=== PATIENT | female | born 1995 | race Caucasian/White ===

== ENCOUNTER 2019-12-12 05:19 | Inpatient (IN) ==
--- NOTE | 2019-12-11 13:39 | History and Physical Report ---
DATE OF ADMISSION: 12/12/2019 ADMITTING DIAGNOSES: 1. Term . 2. Previous section. ADMISSION HISTORY: The patient is a 23-year-old 2, para 1 with an EDC of 12 December by 18-week ultrasound who is admitted for an elective repeat section. The patient did not present for care until 18 weeks gestational age. She had a dating ultrasound at that time which dated the . The first was not with our practice. She underwent a primary section for distress with an unfavorable cervix. She had been counseled on the risks and benefits of a repeat section versus a trial of labor and the patient has opted for a repeat section. Laboratory values for this show a blood type of O positive, antibody negative, rubella immune, hepatitis B negative. She had a normal 1-hour Glucola x2. The patient declined all genetic testing and she had a negative third trimester beta strep culture. PAST MEDICAL HISTORY: OB as above. 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 MEDICAL: Depression. SURGICAL: As above. ALLERGIES: MUCINEX. SOCIAL HISTORY: No smoking. FAMILY HISTORY: Noncontributory. REVIEW OF SYSTEMS: As per HPI. ADMISSION PHYSICAL EXAMINATION: GENERAL: Shows a gravid female in no acute distress. VITAL SIGNS: Blood pressure 110/74 and a weight of 210 pounds. HEENT EXAMINATION: Unremarkable. NECK: Supple. LUNGS: Clear. HEART: With a regular rhythm and rate. ABDOMEN: Gravid, vertex, positive heart tones, estimated weight of 7 1/2 pounds. PELVIC: Shows the cervix to be long, thick and closed. EXTREMITIES: Shows no deep calf tenderness. NEUROLOGIC: Grossly intact. IMPRESSION: 23-year-old G2, P1, 39+ weeks gestational age for elective repeat section. PLAN: The risks, benefits, and alternatives to the surgery have been discussed. While the benefits will be delivery of the , the risks are bleeding, infection, inadvertent injury to bowel or bladder, readmission and reoperation. The patient understands this, permit has been signed, and she wishes to proceed.
[~2019-12-12 05:19] MED LIST: PATIENT'S HEIGHT AND/OR WEIGHT NEEDED SCH
[2019-12-12] MEDS ORDERED: SODIUM CHLORIDE 0.9% 250 ML IV PRN (05:24)
[2019-12-12 05:57] LABS: Basophils # (auto) 0.02 K/uL (0-0.2); Basophils % (auto) 0.2 %; Eosinophils # (auto) 0.12 K/uL (0-0.5); Eosinophils % (auto) 1.2 %; Hematocrit (blood only) 29.6 % (37-47); Hemoglobin 9.2 g/dL (12.0-16.0); Immature Granulocytes # (auto) 0.03 K/uL (0.00-0.02); Immature Granulocytes % (auto) 0.3 %; Lymphocytes # (auto) 1.93 K/uL (1.2-3.4); Mean Corpuscular Hemoglobin 22.5 pg (25-34); Mean Corpuscular Volume 72.4 fL (80-100); Mean Platelet Volume 11.1 fL (7.4-10.4); Monocytes # (auto) 0.63 K/uL (0.11-0.59); Monocytes % (auto) 6.2 %; Neutrophils # (auto) 7.45 K/uL (1.4-6.5); Neutrophils % (auto) 73.1 %; Platelet Count 217 K/uL (130-400); RDW Coefficient of Variation 17.1 % (11.5-14.5); Red Blood Count 4.09 M/uL (4.2-5.4); White Blood Count 10.18 K/uL (4.8-10.8)
[2019-12-12] MEDS ORDERED: CITRIC ACID/SODIUM CITRATE 15 ML UDC PO SCH (06:00)
[2019-12-12] MEDS ORDERED: LACTATED RINGER'S 1,000 ML IV SCH ×2 (06:00→09:03)
[2019-12-12] MEDS ORDERED: CEFAZOLIN 3,000 MG in DEXTROSE 5% 50 ML IV SCH (06:00)
[2019-12-12 06:01] LABS: Mean Corpuscular Hgb Conc 31.1 g/dL (32-36)
--- NOTE | 2019-12-12 07:14 | History & Physical Bridge Note ---
Date of Service December 12, 2019 History & Physical Bridge Note I have examined the patient, reviewed the History & Physical and in the interval since the performance of the History & Physical I have noted the following changes of clinical significance: no changes noted
[2019-12-12] MEDS ORDERED: MoRPHine SULFATE PF 1 MG/ML 10 ML AMP/VIAL INT SPINAL ONE (07:25)
[2019-12-12] MEDS ORDERED: NALOXONE HCL 0.4 MG/1 ML VIAL/CARP IV PRN (07:25)
[2019-12-12] MEDS ORDERED: NALBUPHINE HCL INJ 10 MG/ML AMP IV PRN (07:25)
[2019-12-12] MEDS ORDERED: ONDANSETRON INJ 2 MG/ML 2 ML VIAL IV PRN (07:25)
[2019-12-12] MEDS ORDERED: DiphenhydrAMINE HCL 50 MG/ML VIAL IV PRN (07:25)
[2019-12-12] MEDS ORDERED: PROMETHAZINE HCL 6.25 MG in SODIUM CHLORIDE 0.9% 50 ML IV PRN (07:25)
[2019-12-12] MEDS ORDERED: LACTATED RINGER'S 500 ML IV PRN (07:25)
[2019-12-12] MEDS ORDERED: NALOXONE HCL 1 MG in SODIUM CHLORIDE 0.9% 1000ML 1,000 ML IV PRN (07:25)
[2019-12-12] MEDS ORDERED: MoRPHine SULFATE 4 MG/ML 1 ML CARP\\VIAL IV PRN (07:25)
[2019-12-12] MEDS ORDERED: ePHEDrine sulfate 50 MG/ML AMP IV PRN (07:25)
[2019-12-12] MEDS ORDERED: NALOXONE HCL 0.08 MG in SYRINGE 1.8 ML IV PRN (07:25)
--- NOTE | 2019-12-12 07:25 | Anesthesiology Consultation ---
Date of Service December 12, 2019 Assessment & Plan (1) Encounter for pre-operative examination: Chart Review Chart Review: Acceptable Risk for Surgery and Patient NOT seen in Pre Admission Testing Consults Requested none ASA ASA2 Proposed Anesthesia Anesthesia Type: Spinal (intrathecal narcotics) Risk / Benefits Reviewed With: PT / POA / Parent / Guardian, Accepts Plan and Informed Consent Obtained History Surgery Operation Date: 12/12/19 07:30 Proposed Procedures p Section in LD - Mark Figueroa Jr, MD, FACOG Height/Weight Height: 5 ft 5 in Weight: 95.708 kg Allergies Allergy/AdvReac Type Severity Reaction Status Date / Time latex Allergy Mild Rash Verified 12/12/19 06:55 guaifenesin [From Mucinex] Allergy Hives Verified 12/01/19 14:16 Medications Home Medications Medication Instructions Recorded Confirmed Last Taken PNV cmb#95-ferrous fumarate-FA 1 tab PO DAILY 12/12/19 12/12/19 12/11/19 08:00 [] NPO Date Last Intake of Fluids: 12/11/19 Time Last Intake of Fluids: 19:00 Date Last Intake of Solids: 12/11/19 Time Last Intake of Solids: 19:00 Past Medical History Medical History Encounter for anatomic survey (Resolved) Evaluate anatomy not seen on prior sonogram Ovarian cyst Varicella vaccine Exercise / Class Metabolic Activity II 4-5 Yardwork/Stairs/Walk up hill Past Family History Family History Mother Hypertension Tourette's Past Surgical History Surgical History S/P S/P wisdom tooth extraction Past Anesthesia History No Hx of Anesthesia Complications and No Family Hx of Anesthesia Complications History of PONV No Hx of PONV and No Hx of Motion Sickness Social History Smoking Status: Former smoker Hx Alcohol Use: No Hx Substance Use: No Physical Exam Vital Signs Last Vital Signs Temp 36.6 C 12/12/19 05:36 Pulse 108 H 12/12/19 05:42 Resp 18 12/12/19 05:36 BP 130/86 12/12/19 05:42 ENMT Mouth: no dentition abnormality Thyromental Distance: > or= 3.5 Finger Breadths Mallampati Class: II Neck normal visual inspection Respiratory normal respiratory effort Auscultation: lungs clear to auscultation bilaterally Cardiovascular Rate/Rhythm: regular rate and regular rhythm Psychiatric Orientation: alert Testing Laboratory Results 12/12/19 05:46 Blood Type O Positive 12/12/19 05:46 Antibody Screen NEGATIVE 12/12/19 05:46
[2019-12-12] MEDS ORDERED: MoRPHine SULFATE PF 1 MG/ML 10 ML AMP/VIAL ONE (07:28)
[2019-12-12] MEDS ORDERED: fentaNYL citrate 100 MCG/2 ML VIAL ONE (07:28)
[2019-12-12] MEDS ORDERED: DC INTRASPINAL MORPHINE SCH (07:30)
[2019-12-12] MEDS ORDERED: NO NARCOTICS OR SEDATIVES SCH (07:30)
[2019-12-12] MEDS ORDERED: SODIUM CHLORIDE 0.9% 1000ML 1,000 ML IV SCH (07:30)
[2019-12-12] MEDS ORDERED: KETOROLAC 30 MG/ML VIAL ONE (07:54)
[2019-12-12] MEDS ORDERED: ONDANSETRON INJ 2 MG/ML 2 ML VIAL ONE (07:54)
[2019-12-12] MEDS ORDERED: PHENYLEPHRINE 100MCG/ML 5ML SYR ONE (07:54)
--- NOTE | 2019-12-12 08:31 | Post Operative Brief Note ---
PG Immediate Post Op with CF Date of Surgery December 12, 2019 Pre & Post Diagnosis Operation Date: 12/12/19 07:30 Pre-Op Diagnosis: Intrauterine at 39 weeks. Previous section Post-Op Diagnosis: 1)Intrauterine at 39 weeks. Repeat section for living male child 2)Low Uterine Segment window I identified the patient and participated in the time-out.: Yes Procedure Operation Date: 12/12/19 07:30 Actual Procedures p Repeat section for living male child at 0802 - Mark Figueroa Jr, MD, FACOG 2) Uterine Bx Surgeon Mark Fiugeroa Jr, MD, FACOG Business Manager [place]ina Estimated Blood Loss 800 Findings See Below (viable male , Apgars 9/10; gasses pending, 6 cm uterine window. Apparent adipose tissue invading anterior wall, bx'd) Specimens Specimen Description: A: placenta-exam B: cord blood C: arterial cord gas D: venous cord gas E: uterine wall biopsy Drains Tran Catheter (latex free tran catheter placed without difficulty after spinal. Tran draining clear yellow urine. Urine output to be monitored by anesthesia intraoperatively)
[2019-12-12 08:37] LABS: Base Excess Cord Arterial Bld -0.4 mEq/L (-9-1.8); CO2 Cord Arterial Blood 51 mmHg (39.1-73.5); HCO3 Cord Arterial Blood 26 mmol/L (19.7-28.5); PO2 Cord Arterial Blood 22 mmHg (4.1-31.7); pH Cord Arterial Blood 7.33 (7.1-7.38)
[2019-12-12 08:43] LABS: Base Excess Cord Venous Blood -0.9 mEq/L (-7.7-1.9); Cord Venous Blood HCO3 23 mmol/L (18.4-26.8); Cord Venous Blood PCO2 37 mmHg (30.4-57.2); Cord Venous Blood PO2 33 mmHg (14.1-43.3); Cord Venous Blood pH 7.42 (7.20-7.44); O2 Saturation Cord Venous Bld 69.2 % (<68); Oxygen Sat Cord Arterial Blood < 60.0 % (<60)
--- NOTE | 2019-12-12 08:45 | Anesthesiology Progress Note ---
Date of Service December 12, 2019 Anesthesia Post Procedure Vital Signs Vital Signs: Temp Pulse Resp BP Pulse Ox 12/12/19 08:41 83 109/59 L 99 12/12/19 08:36 81 113/66 98 12/12/19 05:42 108 H 130/86 12/12/19 05:36 36.6 C 18 Transfer of Care Handoff Completed per policy Notes Mental Status: alert / awake / arousable Patient Amnestic to Procedure: Yes Nausea / Vomiting: adequately controlled Pain: adequately controlled Airway Patency, RR, SpO2: stable & adequate BP & HR: stable & adequate Hydration State: stable & adequate Anesthetic Complications: no major complications apparent
[2019-12-12] MEDS ORDERED: BENZOCAINE 20% AER SPR 82.5 GM CAN EXT PRN (09:03)
[2019-12-12] MEDS ORDERED: MAGNESIUM HYDROXIDE SUSP 30 ML UDC PO PRN (09:03)
[2019-12-12] MEDS ORDERED: bisacodyL 10 MG SUPP PR PRN (09:03)
[2019-12-12] MEDS ORDERED: SENNA 8.6 MG TAB PO PRN (09:03)
[2019-12-12] MEDS ORDERED: HYDROCORTISONE ACETATE 25 MG SUPP PR PRN (09:03)
[2019-12-12] MEDS ORDERED: SUPERCREAM 0.870% 15 GM JAR EXT PRN (09:03)
[2019-12-12] MEDS ORDERED: DIPHTHERIA/TETANUS/PERTUSSIS 0.5 ML SYR/VIAL IM ONE (09:03)
[2019-12-12] MEDS ORDERED: KETOROLAC 30 MG/ML VIAL IV PRN (09:03)
--- NOTE | 2019-12-12 10:44 | Operative Report ---
DATE OF OPERATION: 12/12/2019 PREOPERATIVE DIAGNOSES: 1. Term . 2. Previous section. POSTOPERATIVE DIAGNOSES: 1. Term . 2. 6 cm uterine window. PROCEDURES PERFORMED: 1. Repeat low cervical transverse section. 2. Uterine wall biopsy. SURGEON: Mark Figueroa MD. CONVEX GRINDER: Dr. Silvestre Montemayor and Dr. Wilber Anthony. ANESTHESIA: Spinal. FINDINGS: Viable male infant with Apgars of 9 and 10 and a weight of 8 pounds 1 ounces. Arterial and venous cord gases pending. Normal appearing tubes and ovaries bilaterally, 6 cm uterine window noted upon entering the uterus adipose tissue appearing to invade uterine wall. Uterine wall biopsied and sent for pathological evaluation. PROCEDURE IN DETAIL: The patient was taken to the operating room and after spinal anesthesia, was placed in supine position, draped and prepped in the usual fashion. Pfannenstiel type incision through previous surgical scar was made. Underlying subcutaneous tissue was dissected down to the ventral abdominal fascia, which was nicked and opened in a horizontal manner. Preperitoneal fascia was dissected away until the peritoneal cavity was entered and opened in a vertical manner. The peritoneum overlying the uterus was entered and opened in a semi-lunar fashion, the inferior margin of which was taken down creating the bladder flap. A 6 cm ovoid uterine window was noted after creating the bladder flap. The uterus was entered sharply for clear fluid and extended in a semilunar fashion manually. Viable male infant was delivered. Cord was clamped and cut and the baby was passed off to pediatrics who was in attendance for the delivery. Cord gases and cord blood samples obtained. The placenta was delivered spontaneously and sent for pathological evaluation. The uterus was exteriorized. The uterine cavity was wiped clean of any residual blood tissue and/or clot. Inspection of the hysterotomy incision showed adipose tissue along the edge of the incision along the anterior wall of the uterus. This was contiguous and into the myometrium, a portion of which was biopsied and sent for pathological evaluation. The uterus was then closed with 2 layers of 4-0 Vicryl, the first a running locking stitch, the second an imbricating stitch. Hemostasis achieved and the uterus was returned to the pelvic cavity. The pericolic gutters were cleared bilaterally of any blood tissue and/or clot. The pelvis was irrigated with 1000 mL of warm saline. All pedicles and incision were inspected for hemostasis, which was present. Sponge and needle count was correct. The rectus muscle was then plicated in the midline with a running 2-0 Vicryl stitch. The fascia was closed laterally with a running 0 Vicryl suture. The subcutaneous tissue was irrigated with warm saline and the skin incision was closed with a 4-0 Monocryl subcuticular stitch. Sterile dressing was applied. The patient was taken to the recovery room in satisfactory condition. I attest to the content of the Intraoperative Record and any orders documented therein. Any exception s are noted below.
[2019-12-12] MEDS: OXYTOCIN 20 UNITS in LACTATED RINGER'S 1,000 ML IV SCH ×2 (10:46→19:22)
[2019-12-12] MEDS: HYDROmorphone INJ 0.5 MG/0.5 ML SYR IV PRN ×2 (11:14→21:57)
[2019-12-12] MEDS ORDERED: OXYTOCIN 10 UNITS/ML VIAL ONE (11:21)
[2019-12-12] MEDS: SIMETHICONE 80 MG CHEW PO SCH ×3 (13:03→22:49)
[2019-12-12] MEDS: DOCUSATE SODIUM 100 MG CAP PO SCH (21:08)
[2019-12-13] MEDS ORDERED: DiphenhydrAMINE HCL 50 MG/ML VIAL IV PRN (01:26)
[2019-12-13] MEDS ORDERED: PROMETHAZINE HCL 25 MG in SODIUM CHLORIDE 0.9% 50 ML IV PRN (01:26)
[2019-12-13] MEDS ORDERED: MEPERIDINE HCL 50 MG/ML CARP IV PRN (01:26)
[2019-12-13] MEDS ORDERED: ONDANSETRON INJ 2 MG/ML 2 ML VIAL IV PRN (01:26)
[2019-12-13] MEDS: OXYCODONE/ACETAMINOPHEN 5mg/325mg TAB PO PRN ×2 (01:58→12:08)
[2019-12-13] MEDS: IBUPROFEN 600 MG TAB PO PRN ×4 (01:58→22:11)
--- NOTE | 2019-12-13 06:13 | Obstetrical Progress Note ---
Date of Service <Wilber Anthony MD - Last Filed: 12/13/19 07:08> December 13, 2019 Assessment & Plan <Wilber Anthony MD - Last Filed: 12/13/19 07:08> (1) S/P : POD#1 - continue routine care - advance diet as tolerated - encourage ambulation, and oral intake - after discharge will have follow-up in 6 weeks Subjective <Wilber Anthony MD - Last Filed: 12/13/19 07:08> Ms. Rivers is a 24 y/o female ; POD #1 following delivery at 39+ weeks; doing well this morning; having minimal abdominal cramping/pain; voided into tran for most of the night, but was able to urinate independently this AM; tolerating liquids overnight Review of Systems Constitutional: denies fever; chills; sweats; headache Respiratory: denies shortness of breath, difficulty breathing Cardiac: denies chest pain; palpitations; chest pressure Breast: denies breast pain : denies dysuria Physical Exam <Wilber Anthony MD - Last Filed: 12/13/19 07:08> General: alert; oriented; no acute distress Cardiac: RRR; no m/g/r Respiratory: CTAB a/p; no wheezes/rales/rhonchi; no increased work of breathing; symmetrical chest rise; no respiratory distress Abdomen: soft; NT/ND; bowel sounds positive; incision warm/dry/intact, without erythema/exudate/tenderness Uterus: uterine fundus firm; palpable 2cm below umbilicus Lower extrem: no lower extremity edema or swelling; no deep calf pain; Dana's sign negative b/l Results & Data <Wilber Anthony MD - Last Filed: 12/13/19 07:08> Vital Signs (Past 12 Hours) Vital Signs Temp Pulse Resp BP Pulse Ox 12/13/19 03:45 36.8 C 73 16 97/57 L 95 12/13/19 01:25 16 94 12/13/19 00:02 16 94 12/12/19 23:15 36.9 C 81 16 99/62 L 94 12/12/19 22:00 18 97 12/12/19 21:08 18 96 12/12/19 20:45 36.8 C 78 18 97/63 L 97 12/12/19 19:20 18 97 12/12/19 18:35 18 100 Laboratory Results 12/12/19 12/12/19 12/12/19 Range/Units 08:02 08:02 05:46 Cord ABG pH 7.33 (7.1-7.38) Cord ABG pCO2 51 (39.1-73.5) mmHg Cord ABG pO2 22 (4.1-31.7) mmHg Cord ABG HCO3 26 (19.7-28.5) mmol/L Cord ABG Base Excess -0.4 (-9-1.8) mEq/L Cord ABG O2 Sat < 60.0 (<60) % Cord VBG pH 7.42 (7.20-7.44) Cord VBG pCO2 37 (30.4-57.2) mmHg Cord VBG pO2 33 (14.1-43.3) mmHg Cord VBG HCO3 23 (18.4-26.8) mmol/L Cord VBG Base Excess -0.9 (-7.7-1.9) mEq/L Cord VBG O2 Sat 69.2 H (<68) % Barometric Pressure 727.9 727.9 mm/Hg Blood Gas Comments CAIN CAIN Blood Type O Positive Antibody Screen NEGATIVE Medications Administered Current Inpatient Medications Benzocaine (Dermoplast Pain Relieving [place]) 1 appln EXT UD PRN PRN Reason: use on skin as needed Stop: 01/11/20 09:02 Bisacodyl (Dulcolax) 5 mg PO 1999 [facility] Stop: 12/13/19 20:01 Bisacodyl (Dulcolax) 10 mg [place] PRN PRN PRN Reason: Constipation Stop: 01/11/20 09:02 Cocaine HCl (Supercream 0.870%) 1 gm EXT UD PRN PRN Reason: hemmorrhoidal inflammation Stop: 12/26/19 09:02 Diphenhydramine HCl (Benadryl Capsule) 25 mg PO QID PRN PRN Reason: Itching Stop: 01/12/20 01:25 Diphenhydramine HCl (Benadryl) 25 mg IV QID PRN PRN Reason: Itching Stop: 01/12/20 01:25 Docusate Sodium (Colace) 100 mg PO DAILY@ [facility] Stop: 01/11/20 20:59 Last Admin: 12/12/19 21:08 Dose: 100 mg Documented by: Ferrous Sulfate (Feosol) 325 mg PO DAILY@08 [facility] Stop: 01/12/20 07:59 Hydrocortisone (Anusol Hc) 25 mg [place] BID PRN PRN Reason: Hemorrhoids Stop: 01/11/20 09:02 Lactated Ringer's (Lr) 1,000 mls @ 125 mls/hr IV .Q8H SARINA Stop: 01/11/20 09:02 Promethazine HCl 25 mg/ Sodium (Chloride) 51 mls @ 204 mls/hr IV Q4H PRN PRN Reason: Nausea And Vomiting Stop: 01/12/20 01:25 Ibuprofen (Motrin) 600 mg PO Q4H PRN PRN Reason: Pain Stop: 01/11/20 09:02 Last Admin: 12/13/19 01:58 Dose: 600 mg Documented by: Ketorolac Tromethamine (Toradol) 30 mg IV Q6H PRN PRN Reason: Pain Stop: 12/17/19 09:02 Magnesium Hydroxide (Milk Of Magnesia) 30 ml PO HS PRN PRN Reason: Constipation Stop: 01/11/20 09:02 Meperidine HCl (Demerol) 50 - 75 mg IV Q4H PRN PRN Reason: Pain Stop: 12/27/19 01:25 Ondansetron HCl (Zofran) 4 mg IV Q4H PRN PRN Reason: Nausea And Vomiting Stop: 01/12/20 01:25 Oxycodone/Acetaminophen (Percocet 5mg/325mg) 1 - 2 tab PO Q4H PRN PRN Reason: Pain Stop: 12/27/19 01:25 Last Admin: 12/13/19 01:58 Dose: 1 tab Documented by: Prenat Multivit/[place]/Iron/Folic Ac ( Vitamin) 1 tab PO DAILY@08 [facility] Stop: 01/12/20 07:59 Sennosides (Senokot) 17.2 mg PO HS PRN PRN Reason: Constipation Stop: 01/11/20 09:02 Simethicone (Mylicon) 80 mg PO DAILY@08,13,17,21 [facility] Stop: 01/11/20 12:59 Last Admin: 03/06/20 22:49 Dose: 80 mg Documented by: <Veronica Tay MD, FACOG - Last Filed: 12/13/19 07:46> Co-Signing Physician Notes Resident Physician Supervision Note: I interviewed and examined the patient. Discussed with Dr. Anthony and agree with findings and plan as documented in the note. Any exceptions or clarifications are listed here: Doing well. Routine POD #1 activities, encourage ambulation, adat, pain managment. Documented By: Veronica Tay MD, FACOG Resident Activity Tracking <Wilber Anthony MD - Last Filed: 12/13/19 07:08> Resident Involvement: Resident Care Provided Care Provided: OB Delivery
[2019-12-13 06:57] LABS: Basophils # (auto) 0.03 K/uL (0-0.2); Basophils % (auto) 0.3 %; Hematocrit (blood only) 26.8 % (37-47); Hemoglobin 8.1 g/dL (12.0-16.0); Immature Granulocytes # (auto) 0.02 K/uL (0.00-0.02); Immature Granulocytes % (auto) 0.2 %; Lymphocytes # (auto) 1.55 K/uL (1.2-3.4); Lymphocytes % (auto) 15.6 %; Mean Corpuscular Hemoglobin 22.4 pg (25-34); Mean Corpuscular Hgb Conc 30.2 g/dL (32-36); Mean Platelet Volume 11.5 fL (7.4-10.4); Monocytes # (auto) 0.63 K/uL (0.11-0.59); Monocytes % (auto) 6.3 %; Neutrophils # (auto) 7.53 K/uL (1.4-6.5); Neutrophils % (auto) 75.6 %; Platelet Count 187 K/uL (130-400); RDW Coefficient of Variation 17.4 % (11.5-14.5); RDW Standard Deviation 47.1 fL (36.4-46.3); Red Blood Count 3.62 M/uL (4.2-5.4); White Blood Count 9.96 K/uL (4.8-10.8)
[2019-12-13 07:25] LABS: Polychromasia 1+
[2019-12-13] MEDS ORDERED: FERROUS SULFATE 325 MG TAB PO SCH ×2 (08:00→17:00)
[2019-12-13] MEDS: PRENATAL VITAMIN 1 TAB PO SCH (09:07)
[2019-12-13] MEDS: DOCUSATE SODIUM 100 MG CAP PO SCH ×2 (09:07→20:18)
[2019-12-13] MEDS: SIMETHICONE 80 MG CHEW PO SCH ×4 (09:08→20:18)
--- NOTE | 2019-12-13 09:46 | Obstetrical Progress Note ---
Date of Service December 13, 2019 Assessment & Plan (1) Dehiscence without extension of old uterine scar during labor, : Discussed with the patient that there was a 6 cm uterine window noted at the time of the section. Discussed with the patient that if that window had ruptured antenatally in all likelihood that would have resulted in a demise and significant health risk to the patient. The probability of that occurring with a subsequent is high. Recommend that the patient not have any further pregnancies. The patient is bottlefeeding and would like to start on contraceptive pills. control pills are not carried on formulary here in the hospital. Will start the patient on control pills at discharge. All questions answered of the patient. Subjective 24-year-old 2 para 2 status post repeat section. The patient's second was 16 months after her initial delivery. Here to discuss operative findings with the patient. Results & Data Vital Signs (Past 12 Hours) Vital Signs Temp Pulse Resp BP Pulse Ox 12/13/19 03:45 98.2 F 73 16 97/57 L 95 12/13/19 01:25 16 94 12/13/19 00:02 16 94 12/12/19 23:15 98.4 F 81 16 99/62 L 94 12/12/19 22:00 18 97
--- NOTE | 2019-12-13 09:49 | Discharge Summary ---
Date of Service December 13, 2019 Admission HPI Per Admitting Provider The patient is a 23-year-old 2, para 1 with an EDC of 12 December by 18-week ultrasound who is admitted for an elective repeat section. The patient did not present for care until 18 weeks gestational age. She had a dating ultrasound at that time which dated the . The first was not with our practice. She underwent a primary section for distress with an unfavorable cervix. She had been counseled on the risks and benefits of a repeat section versus a trial of labor and the patient has opted for a repeat section. Laboratory values for this show a blood type of O positive, antibody negative, rubella immune, hepatitis B negative. She had a normal 1-hour Glucola x2. The patient declined all genetic testing and she had a negative third trimester beta strep culture. Discharge Data Consultations 12/12/19 05:22 Consult Anesthesiology Stat 12/12/19 09:03 Consult Case Management - Discharge Planning Routine Procedures Performed Operation Date: 12/12/19 07:30 Actual Procedures p Repeat section for living male child at 0802 - Mark Figueroa Jr, MD, [facility] Course (1) Previous delivery affecting , antepartum: On the day of delivery the patient was taken to the operating room where she underwent the repeat low cervical transverse section. Operative findings showed a viable infant. A 6 cm uterine window was noted at the time of the surgery. After evacuation of uterine contents there was adipose tissue on the surface of the endometrium. This was too extensive to allow resection without compromising what was left of the uterine wall. A piece of the presumed adipose tissue was biopsied and sent for pathological evaluation. Postoperatively the patient did well. Partida catheter was removed on the first postoperative day. Patient showed mild postoperative anemia and was started on iron therapy. A long discussion with the patient took place concerning the intraoperative findings of the uterine window. With the large uterine window, concerns about recurrence in future pregnancies were raised. The patient was advised that recurrence could occur and would not recommend future pregnancies. Discussed contraception with the patient and she wishes to start control pills immediately. Prescription was given to her at the time of discharge. On the evening of the first postoperative day the head patient had an episode of blurry vision. No etiology for this could be determined and the symptoms reso lved on its own. A prescription for the medications was sent. The patient will follow-up for a postoperative examination. (2) Dehiscence without extension of old uterine scar during labor, : (3) Short interval between pregnancies affecting , antepartum: Coding Level of Care Code None Diagnoses Previous delivery affecting , antepartum O34.219 Dehiscence without extension of old uterine scar during labor, O90.0 Short interval between pregnancies affecting , antepartum O09.899
[2019-12-13] MEDS ORDERED: bisacodyL 5 MG TABEC PO SCH (20:00)
[2019-12-14] MEDS: OXYCODONE/ACETAMINOPHEN 5mg/325mg TAB PO PRN ×2 (00:01→10:34)
[2019-12-14] MEDS: IBUPROFEN 600 MG TAB PO PRN (03:35)
[2019-12-14 06:36] LABS: Hematocrit (blood only) 27.8 % (37-47); Hemoglobin 8.5 g/dL (12.0-16.0)
--- NOTE | 2019-12-14 08:10 | Obstetrical Progress Note ---
Date of Service December 14, 2019 Assessment & Plan (1) Short interval between pregnancies affecting , antepartum: (2) Previous delivery affecting , antepartum: (3) Dehiscence without extension of old uterine scar during labor, : - pt doing well - blurred vision subsided - will allow d/c home - instructions and Rx given - pt to start OCP's - f/u for 6 week PP check Subjective Ambulation: ambulating normally Voiding: no voiding problems Patient had an episode over the evening of blurred vision with some chest discomfort. Blood pressure was normal pulse oximeter was normal patient states his symptoms have resolved. Physical Exam Constitutional WD/WN, vitals as above Respiratory normal respiratory effort, lungs clear to auscultation Cardiovascular RRR, no murmur, no edema Gastrointestinal (Abdomen) Incision intact, appropriate post-op tenderness Musculoskeletal (-) deep calf tenderness Results & Data Vital Signs (Past 12 Hours) Vital Signs Temp Pulse Resp BP Pulse Ox 12/14/19 03:30 97.3 F L 88 18 126/76 98 12/13/19 23:40 97.9 F 85 18 116/68 97
--- NOTE | 2019-12-14 08:39 | Communication Note ---
Date of Service: December 14, 2019 Pt is S/P SAB for CSEC;No c/o H/A;Pt is ambulating;No neurologic sequelae.
[2019-12-14] MEDS: PRENATAL VITAMIN 1 TAB PO SCH (10:33)
[2019-12-14] MEDS: SIMETHICONE 80 MG CHEW PO SCH (10:33)
[2019-12-14] MEDS: DOCUSATE SODIUM 100 MG CAP PO SCH (10:33)
== END 2019-12-14 12:50 | disposition home or self-care (01) | DRG 788 ==
LOC: 4S1 05:19 → EDSTATUS 08:55 → 4S2 10:50